=== PATIENT | male | born 1990 | race Caucasian/White ===

== ENCOUNTER 2017-10-15 15:52 | Emergency (ER) | payer OTHER ==
[2017-10-15] MEDS ORDERED: NS 500 ML IV ONE (16:24)
--- NOTE | 2017-10-15 16:27 | EDPHY ---
H & P Time Seen by Provider: 10/15/17 16:09 HPI/ROS: CHIEF COMPLAINT: Tingling and numbness in arms and legs HISTORY OF PRESENT ILLNESS: Patient was coming back from [place] and felt a little bit sick this morning. He had some nausea and did not eat much for breakfast. On the airplane he still had some nausea and poor appetite and then about 20 min prior to arrival while they were driving back from the airport he was possibly hyperventilating and then noticed he was numb and tingly in both arms and his feet were numb. He had some perioral numbness and here at the hospital his hands were so tight and cramped that his father had to open his hands to get his fingers apart. Currently the patient still has some tingling and numbness in all extremities. He still has little bit of nausea. Feels like his heart is racing of his heart rate is fast. Currently no shortness of breath or chest pain. No leg swelling. REVIEW OF SYSTEMS: Eye: no change in vision ENT: no sore throat Cardiac: no chest pain or syncope Pulmonary: no cough or SOB Abdomen: no vomiting, diarrhea, abdominal pain Musculoskeletal: no back pain Skin: no rash Neuro: no headache Constitutional: no fever : no urinary symptoms A comprehensive 10 point review of systems is otherwise negative aside from elements mentioned in the history of present illness. PAST MEDICAL HISTORY: Negative Social history: Just flew back from [place], here with his brother and father General Appearance: Alert and conversant, cooperative. Eyes: No scleral icterus. Extraocular motion intact. ENT, Mouth: Normal mucous membranes. Respiratory: Normal respiratory effort, breath sounds equal, lungs are clear to auscultation. Cardiovascular: Regular rate and rhythm. Gastrointestinal: Abdomen is soft and non tender. Neurological: Alert, face symmetric, normal motor and sensory in extremities. Mildly tremulous. No pronator drift. Fluent speech. Toes downgoing bilaterally. Skin: Warm and dry, no rashes. No urticaria. Musculoskeletal: No peripheral edema. Psychiatric: Not agitated. Emergency Department course/MDM: Likely hyperventilation, with heart rate noted at 1:13 a.m. And slightly elevated respiratory rate of 22, but O2 sat 100% on room air. Zofran 4 mg IV, normal saline 1 L, EKG. I think acute coronary syndrome or pneumothorax or pulmonary embolism would all be unlikely. 181: Re-examined, EKG is sinus rhythm, CO2 slightly low at 21 although this was also drawn after most of his symptoms are improving. Stable for discharge with primary care referral. Able to move his hands normally and feels better, heart rate decreased. Smoking Status: Current every day smoker Constitutional: Initial Vital Signs Temperature (C) 36.4 C 10/15/17 15:55 Heart Rate 113 H 10/15/17 15:55 Respiratory Rate 22 H 10/15/17 15:55 Blood Pressure 149/84 H 10/15/17 15:55 O2 Sat (%) 100 10/15/17 15:55 O2 Delivery Mode Room Air Allergies/Adverse Reactions: shellfish derived Allergy (Verified 10/15/17 15:54) cashews Allergy (Uncoded 10/15/17 15:54) Home Medications: Medication Instructions Recorded Albuterol [Ventolin Hfa] 2 puffs IH 06/01/11 Medical Decision Making - Diagnostics EKG Interpretation: 12-lead EKG interpreted by me; official reading is in trace master. My interpretation is sinus rhythm without ischemic changes Differential Diagnosis: I think that malignant dysrhythmia, pulmonary embolism, stroke or seizure are all unlikely. - Data Points Laboratory Results: Laboratory Results 10/15/17 16:50 10/15/17 16:50 10/15/17 10/15/17 16:50 16:50 WBC 4.42 10^3/uL 10^3/uL (3.80-9.50) RBC 5.39 10^6/uL 10^6/uL (4.40-6.38) Hgb 16.1 g/dL g/dL (13.7-17.5) Hct 45.9 % % (40.0-51.0) MCV 85.2 fL fL (81.5-99.8) MCH 29.9 pg pg (27.9-34.1) MCHC 35.1 g/dL g/dL (32.4-36.7) RDW 11.8 % % (11.5-15.2) Plt Count 207 10^3/uL 10^3/uL (150-400) MPV 10.2 fL fL (8.7-11.7) Neut % (Auto) 76.3 % H % (39.3-74.2) Lymph % (Auto) 13.1 % L % (15.0-45.0) [place] % (Auto) 10.2 % % (4.5-13.0) Eos % (Auto) 0.0 % L % (0.6-7.6) Baso % (Auto) 0.2 % L % (0.3-1.7) Nucleat RBC Rel Count 0.0 % % (0.0-0.2) Absolute Neuts (auto) 3.37 10^3/uL 10^3/uL (1.70-6.50) Absolute Lymphs (auto) 0.58 10^3/uL L 10^3/uL (1.00-3.00) Absolute Monos (auto) 0.45 10^3/uL 10^3/uL (0.30-0.80) Absolute Eos (auto) 0.00 10^3/uL L 10^3/uL (0.03-0.40) Absolute Basos (auto) 0.01 10^3/uL L 10^3/uL (0.02-0.10) Absolute Nucleated RBC 0.00 10^3/uL 10^3/uL (0-0.01) Immature Gran % 0.2 % % (0.0-1.1) Immature Gran # 0.01 10^3/uL 10^3/uL (0.00-0.10) Sodium 137 mEq/L mEq/L (135-145) Potassium 3.6 mEq/L mEq/L (3.5-5.2) Chloride 101 mEq/L mEq/L (97-110) Carbon Dioxide 21 mEq/l L mEq/l (22-31) Anion Gap 15 mEq/L mEq/L (8-16) BUN 10 mg/dL mg/dL (7-23) Creatinine 0.8 mg/dL mg/dL (0.7-1.3) Estimated GFR > 60 Glucose 90 mg/dL mg/dL (70-100) Calcium 9.7 mg/dL mg/dL (8.5-10.4) Medications Given: Discontinued Medications Sodium Chloride (Ns) 500 mls @ 0 mls/hr IV EDNOW ONE; Wide Open PRN Reason: Protocol Stop: 10/15/17 16:25 Last Admin: 10/15/17 16:50 Dose: 500 mls Departure - Departure Disposition: Home, Routine, Self-Care Clinical Impression: Hyperventilation Condition: Good Instructions: Hyperventilation (ED) Referrals: Lizette Lino MD [Medical Doctor] - As per Instructions
--- NOTE | 2017-10-15 16:56 | CPEKG ---
Heart Rate: 74 RR Interval: 811 P-R Interval: 164 QRSD Interval: 80 QT Interval: 408 QTC Interval: 453 P [place]: 53 QRS [place]: 111 T Wave [place]: 74 EKG Severity - ABNORMAL ECG - EKG Impression: SINUS ARRHYTHMIA, RATE 64-89 EKG Impression: RIGHT AXIS DEVIATION EKG Impression: LOW VOLTAGE IN FRONTAL LEADS EKG Impression: ST ELEV, PROBABLE NORMAL EARLY REPOL PATTERN Electronically Signed By: Sina Gamez 15-Oct-2017 17:04:24
[2017-10-15 17:12] LABS: PLATELET COUNT 207 10^3/uL (150-400)
[2017-10-15 18:12] VITALS: BP 121/71; PULSE 75; RESP 14; TEMP 98.2; O2SAT 97
== END 2017-10-15 18:30 | disposition home or self-care (01) ==
DX: R06.4 Hyperventilation (principal); F17.200 Nicotine dependence, unspecified, uncomplicated; E86.9 Volume depletion, unspecified

== ENCOUNTER 2018-01-13 18:12 | Emergency (ER) | payer SELFPAY ==
[2018-01-13] MEDS ORDERED: NS 1,000 ML IV ONE (18:38)
[2018-01-13] MEDS ORDERED: FAMOTIDINE 20 MG TAB PO ONE (18:38)
[2018-01-13] MEDS ORDERED: methylPREDNISolone SOD SUCC 125 MG/2 ML VIAL IVP ONE (18:39)
[2018-01-13 18:55] LABS: PLATELET COUNT 232 10^3/uL (150-400)
--- NOTE | 2018-01-13 19:18 | EDPHY ---
General Time Seen by Provider: 01/13/18 19:17 Narrative: CHIEF COMPLAINT: Abdominal pain HISTORY OF PRESENT ILLNESS: Patient complains of right lower quadrant abdominal pain that started late last evening. It is constant duration. Moderate to severe. Does not radiate. Worse with ambulation and "when I twist or move my leg." Nausea but no vomiting. Does have decreased appetite. No fever chills. His pain is to the point that he is very concerned about appendicitis. He does have history of gastritis but is not any alcohol or marijuana in the past 72 hr. He has no epigastric pain at this time. No other associated complaints or modifying factors. REVIEW OF SYSTEMS: Ten systems reviewed and are negative unless otherwise noted in the HPI PCP: None SPECIALISTS: None PAST MEDICAL HISTORY: Gastritis, asthma PAST SURGICAL HISTORY: Oral surgery for impacted teeth SOCIAL HISTORY: Daily smoker of cigarettes. Occasional alcohol with heavy weekend ingestion. Occasional marijuana FAMILY HISTORY: Noncontributory EXAMINATION General Appearance: Alert, no distress Head: normocephalic, atraumatic Eyes: Pupils equal and round, no conjunctival pallor or injection ENT, Mouth: Mucous membranes moist Neck: Normal inspection, supple, non-tender Respiratory: Lungs are clear to auscultation Cardiovascular: Regular rate and rhythm Gastrointestinal: Abdomen is soft and nondistended. There is right lower quadrant tenderness with positive McBurney and positive obturator. No tympany rigidity. No guarding. No palpable mass. Back: non-tender, no bony abnormalities Neurological: A&O, nonfocal, normal gait Skin: Warm and dry, no rash. No petechiae or purpura Extremities: Nontender, no pedal edema Psychiatric: Mood and affect normal DIFFERENTIAL DIAGNOSES: Including but not limited to appendicitis, mesenteric adenitis, enteritis, colitis, diverticulitis, gastritis MDM: 6:40 p.m. Right lower quadrant pain since last night. There is tenderness in McBurney's region and with obturator. His vital signs are within normal limits per laboratory studies been ordered. He is in no acute distress. 7:15 p.m. Laboratory studies within normal limits with the patient still has significant right lower quadrant tenderness. I will proceed with CT scan abdomen pelvis. Patient has a stated allergy of shellfish, but no previous CT scans. Although interaction is highly unlikely, I will pre treat him with Benadryl and Solu- Medrol 8:15 p.m. Notified by radiologist Dr. Barrientos. CT scan abdomen pelvis reveals no acute findings. The appendix is well visualized. 8:20 p.m. Patient re-evaluated. He is feeling significantly better than time of arrival. We discussed the negative laboratory and CT findings. We discussed possibility of gastritis, enteritis or viral etiology. At this point his pain is tolerable he would like to go home. We discussed short course of pain medication, antacid and nausea medication. I would like him to return here for any worsening of pain, intolerance of p. O.. I would like him to return here if he does not have complete resolution by tomorrow this time. He is comfortable with this plan and discharged home stable condition. - Diagnostics Imaging Results: Imaging Impressions Abdomen CT 01/13/18 19:16 Impression: 1. Nonobstructive left nephrolithiasis. No right nephrolithiasis or hydronephrosis. 2. No CT evidence of appendicitis, abscess, or bowel obstruction. Findings and recommendations discussed with Emergency Department physician Specialty Department Supervisor, Oneil Mosher PA-C, at 2012 hours, on January 13, 2018. Final report concurs with initial preliminary interpretation. - History Smoking Status: Current every day smoker - Objective Vital Signs: Initial Vital Signs Temperature (C) 97.7 F 01/13/18 18:20 Heart Rate 86 01/13/18 18:20 Respiratory Rate 16 01/13/18 18:20 Blood Pressure 112/81 H 01/13/18 18:20 O2 Sat (%) 97 01/13/18 18:20 O2 Delivery Mode Room Air Allergies/Adverse Reactions: shellfish derived Allergy (Verified 01/13/18 18:19) cashews Allergy (Uncoded 01/13/18 18:19) Home Medications: Medication Instructions Recorded Albuterol [Ventolin Hfa] 2 puffs IH 06/01/11 Hydrocodone/APAP 5/325 [[place] 1 - 2 tab PO Q4H PRN #5 tab 01/13/18 5/325 (*)] Ondansetron Odt [Zofran Odt 4 mg 4 mg PO Q6 PRN #12 tab 01/13/18 (*)] Laboratory Results: Laboratory Results 01/13/18 18:41 01/13/18 18:41 01/13/18 01/13/18 18:41 18:41 WBC 5.52 10^3/uL 10^3/uL (3.80-9.50) RBC 5.14 10^6/uL 10^6/uL (4.40-6.38) Hgb 15.4 g/dL g/dL (13.7-17.5) Hct 44.3 % % (40.0-51.0) MCV 86.2 fL fL (81.5-99.8) MCH 30.0 pg pg (27.9-34.1) MCHC 34.8 g/dL g/dL (32.4-36.7) RDW 11.9 % % (11.5-15.2) Plt Count 232 10^3/uL 10^3/uL (150-400) MPV 10.0 fL fL (8.7-11.7) Neut % (Auto) 53.2 % % (39.3-74.2) Lymph % (Auto) 32.8 % % (15.0-45.0) [place] % (Auto) 9.8 % % (4.5-13.0) Eos % (Auto) 3.3 % % (0.6-7.6) Baso % (Auto) 0.7 % % (0.3-1.7) Nucleat RBC Rel Count 0.0 % % (0.0-0.2) Absolute Neuts (auto) 2.94 10^3/uL 10^3/uL (1.70-6.50) Absolute Lymphs (auto) 1.81 10^3/uL 10^3/uL (1.00-3.00) Absolute Monos (auto) 0.54 10^3/uL 10^3/uL (0.30-0.80) Absolute Eos (auto) 0.18 10^3/uL 10^3/uL (0.03-0.40) Absolute Basos (auto) 0.04 10^3/uL 10^3/uL (0.02-0.10) Absolute Nucleated RBC 0.00 10^3/uL 10^3/uL (0-0.01) Immature Gran % 0.2 % % (0.0-1.1) Immature Gran # 0.01 10^3/uL 10^3/uL (0.00-0.10) Sodium 139 mEq/L mEq/L (135-145) Potassium 3.9 mEq/L mEq/L (3.3-5.0) Chloride 107 mEq/L mEq/L (97-110) Carbon Dioxide 21 mEq/l L mEq/l (22-31) Anion Gap 11 mEq/L mEq/L (8-16) BUN 9 mg/dL mg/dL (7-23) Creatinine 0.8 mg/dL mg/dL (0.7-1.3) Estimated GFR > 60 Glucose 89 mg/dL mg/dL (70-100) Calcium 9.2 mg/dL mg/dL (8.5-10.4) Total Bilirubin 0.9 mg/dL mg/dL (0.1-1.4) Conjugated Bilirubin 0.4 mg/dL mg/dL (0.0-0.5) Unconjugated Bilirubin 0.5 mg/dL mg/dL (0.0-1.1) AST 20 IU/L IU/L (17-59) ALT 23 IU/L IU/L (21-72) Alkaline Phosphatase 52 IU/L IU/L (38-126) Total Protein 7.0 g/dL g/dL (6.3-8.2) Albumin 4.1 g/dL g/dL (3.5-5.0) Lipase 49 IU/L IU/L (23-300) Medications Given: Discontinued Medications Diphenhydramine HCl (Benadryl Injection) 25 mg IVP EDNOW ONE Stop: 01/13/18 18:40 Last Admin: 01/13/18 18:50 Dose: 25 mg Famotidine (Pepcid) 20 mg PO EDNOW ONE Stop: 01/13/18 18:39 Last Admin: 01/13/18 18:50 Dose: 20 mg Sodium Chloride (Ns) 1,000 mls @ 0 mls/hr IV EDNOW ONE; Wide Open PRN Reason: Protocol Stop: 01/13/18 18:39 Last Admin: 01/13/18 18:50 Dose: 1,000 mls Methylprednisolone Sodium Succinate (Solu-Medrol) 125 mg IVP EDNOW ONE Stop: 01/13/18 18:40 Last Admin: 01/13/18 18:51 Dose: 125 mg Departure - Departure Disposition: Home, Routine, Self-Care Clinical Impression: Abdominal pain in male Condition: Good Instructions: Gastritis (ED), Acute Abdominal Pain (ED) Additional Instructions: 1. Medications as prescribed as needed 2. But [id number] Pepcid, 20 mg twice daily for 5 days 3. Contact the on-call providers as I have provided for you to establish outpatient care 4. ED precautions for return of pain, fever, vomiting, intolerance of liquid. 5. Return here if he did not have resolution of her symptoms within 24 hr Referrals: [facility],. [Clinic] - As per Instructions Irvin Barclay MD [[facility] [place]] - As per Instructions Stand Alone Forms: Work Excuse Prescriptions: Hydrocodone/APAP 5/325 [[place] 5/325 (*)] 1 - 2 tab PO Q4H PRN #5 tab PRN Reason: Pain, Moderate Ondansetron Odt [Zofran Odt 4 mg (*)] 4 mg PO Q6 PRN #12 tab PRN Reason: Nausea/Vomiting, Use 1st
[2018-01-13] MEDS ORDERED: IOPAMIDOL (ISOVUE-300) 100 ML BTL ONE (19:30)
[2018-01-13 20:36] VITALS: BP 97/62
== END 2018-01-13 20:42 | disposition home or self-care (01) ==
DX: R10.31 Right lower quadrant pain (principal); E86.9 Volume depletion, unspecified; J45.909 Unspecified asthma, uncomplicated; F17.210 Nicotine dependence, cigarettes, uncomplicated
CPT/HCPCS: 96374; J1200; J2930; Q9967